=== PATIENT | male | born 1960 | race Caucasian/White ===

== ENCOUNTER 2016-12-01 09:41 | Day surgery (SDC) | payer BC ==
[~2016-12-01 09:41] MED LIST: AMARYL4 PO; ATROVENT HFA17 MCG INH; BACLOFEN PO; BEN25 PO; BUSPAR5 PO; DUONEB INH; FENOFIBRATE; FLOVENT; HABIT21 TOP; HUMI PO; IMDUR PO; IMDUR60 PO; ISOSORBIDE; KLOR-CON 1010 MEQ PO; L20 PO; LASIX; LEVAQUIN750 MG PO; LIOR10 PO; LIPITOR10 PO; LOP25 PO; NEUR600 PO; NITROMIST400 MCG SL; NITROSPRAY SL; NORCO1 TAB PO; P10 PO; P5 PO; PLAVIX PO; PRILO PO; PROAIR HFA INH; PROTONIX PO; REQUIP2 PO; SOMATAB PO; STERAPRED DS10 MG; T PO; TAMIFLU PO; TOPROL PO; TOPXL50 PO; TRICOR; TRICOR145 PO; TYLENOL #4; VALTREX5 PO; VENTOLIN HFA INH; VICODINTAB PO; ZITH250 PO; ZOVIRAX400 MG PO
[2017-01-31] MEDS ORDERED: IMDUR60 PO (09:04)
[2017-05-30] MEDS ORDERED: PERCOCET 10/3251 TAB (00:14)
[2017-05-31] MEDS ORDERED: IMDUR60 PO (14:57)
[2017-05-31] MEDS ORDERED: HABIT21 TOP (14:57)
[2017-05-31] MEDS ORDERED: DUONEB INH (14:59)
[2017-05-31] MEDS ORDERED: ACET500CAP PO (14:59)
[2017-05-31] MEDS ORDERED: AMB5 PO (15:00)
[2017-05-31] MEDS ORDERED: ZOFRAN ODT4 MG PO (15:01)
[2017-05-31] MEDS ORDERED: AMOXIL500C PO (15:02)
[2017-05-31] MEDS ORDERED: ZANAFLEX 4 MG TA4 MG PO (15:02)
== END 2016-12-01 23:59 | disposition home or self-care (01) ==
LOC: DMU 09:41
DX: R13.10 Dysphagia, unspecified (principal); Z53.9 Procedure and treatment not carried out, unspecified reason; I10 Essential (primary) hypertension; I21.3 ST elevation (STEMI) myocardial infarction of unspecified site; Z95.1 Presence of aortocoronary bypass graft; K21.9 Gastro-esophageal reflux disease without esophagitis; K58.9 Irritable bowel syndrome, unspecified; M19.90 Unspecified osteoarthritis, unspecified site; J45.909 Unspecified asthma, uncomplicated; E11.9 Type 2 diabetes mellitus without complications; J86.9 Pyothorax without fistula; J40 Bronchitis, not specified as acute or chronic
CPT/HCPCS: 82962